=== PATIENT | female | born 1950 | race Caucasian/White ===

== ENCOUNTER → 2016-10-10 17:01 | Outpatient (CLI) | payer MEDICARE, BC | END | disposition home or self-care (01) | LOC: D.MAMMO 14:00 | DX: Z12.31 Encounter for screening mammogram for malignant neoplasm of breast (principal) ==

== ENCOUNTER → 2017-08-15 10:19 | Outpatient (CLI) | payer MEDICARE, BC | END | disposition home or self-care (01) | LOC: D.CT 10:19 | DX: R06.02 Shortness of breath (principal) ==

== ENCOUNTER → 2017-08-22 11:55 | Outpatient (CLI) | payer MEDICARE, BC | END | disposition home or self-care (01) | LOC: D.MAMMO 09:30 | DX: R92.8 Other abnormal and inconclusive findings on diagnostic imaging of breast (principal) ==

== ENCOUNTER 2018-07-17 17:21 | Inpatient (IN) | payer MEDICARE, BC ==
[~2018-07-17] VITALS: Ht 157.5 cm; Wt 113.4 kg
[2018-07-17 19:12] LABS: BASOPHILS 0.2 % (0-2); EOSINOPHILS 0.8 % (0-7); HEMATOCRIT 40.7 % (36.0-48.0); HEMOGLOBIN 13.9 g/dL (12-16); IMMATURE GRANULOCYTES 0.3 % (0-5); LYMPHOCYTES 20.7 % (15-50); MCH 29.6 pg (26.0-34.0); MCHC 34.2 g/dL (31.0-37.0); MCV 86.6 fL (80.0-100.0); MEAN PLATELET VOLUME 10.5 fL (7.4-10.4); MONOCYTES 7.4 % (2-11); NEUTROPHILS 70.6 % (40-80); RDW 13.4 % (11.5-14.5); WBC 17.3 10x3/uL (4.8-10.8)
[2018-07-17 19:14] LABS: PLATELET COUNT 268 10x3/uL (130-400)
--- NOTE | 2018-07-17 19:30 | NUR ---
SITTING UP IN CHAIR AT BEDSIDE, IN ROOM, DENIES PAIN, RADIOLOGY HERE FOR US, ORIENTIATED TO ROOM CALL LIGHT IN REACH
[2018-07-17 19:48] LABS: ALBUMIN 3.9 g/dL (3.4-5.0); ANION GAP 20.3 mmol/L (8-16); BILIRUBIN - TOTAL 0.82 mg/dL (0.2-1.3); C-REACTIVE PROTEIN 2.6 mg/dL (0.0-0.9); CALCIUM 9.3 mg/dL (8.5-10.1); CARBON DIOXIDE 20.9 mmol/L (21.0-32.0); CREATININE - SERUM 1.6 mg/dL (0.6-1.3); POTASSIUM - SERUM 4.2 mmol/L (3.5-5.1); PROTEIN - SERUM 7.8 g/dL (6.4-8.2)
[2018-07-17 23:33] VITALS: BP 129/53; BMI 45.8
[2018-07-18] VITALS: BP 126/60
--- NOTE | 2018-07-18 03:36 | NUR ---
I have reviewed this patient and I concur with the Shift Assessment completed by the Licensed Practical Nurse today this shift.
[2018-07-18 04:00] VITALS: BP 104/64
[2018-07-18 06:18] LABS: BASOPHILS 0.2 % (0-2); EOSINOPHILS 2.3 % (0-7); HEMATOCRIT 35.3 % (36.0-48.0); IMMATURE GRANULOCYTES 0.2 % (0-5); LYMPHOCYTES 25.6 % (15-50); MCH 29.4 pg (26.0-34.0); MCV 86.5 fL (80.0-100.0); MEAN PLATELET VOLUME 10.3 fL (7.4-10.4); MONOCYTES 9.4 % (2-11); NEUTROPHILS 62.3 % (40-80); PLATELET COUNT 225 10x3/uL (130-400); RBC 4.08 10x6/uL (4.00-5.40); RDW 13.6 % (11.5-14.5); WBC 13.2 10x3/uL (4.8-10.8)
[2018-07-18 06:39] LABS: ALBUMIN 3.2 g/dL (3.4-5.0); ANION GAP 15.1 mmol/L (8-16); BILIRUBIN - TOTAL 0.83 mg/dL (0.2-1.3); CALCIUM 8.9 mg/dL (8.5-10.1); CARBON DIOXIDE 23.7 mmol/L (21.0-32.0); CREATININE - SERUM 1.4 mg/dL (0.6-1.3); POTASSIUM - SERUM 3.8 mmol/L (3.5-5.1); PROTEIN - SERUM 6.6 g/dL (6.4-8.2)
--- NOTE | 2018-07-18 07:45 | NUR ---
ASSESSMENT PER FLOW SHEET. PT IS WITHOUT DISTRESS. NPO FOR CTA THIS AM. MONITOR FOR NEEDS.CALL LIGHT IN REACH.
[2018-07-18 08:45] VITALS: BP 120/68
--- NOTE | 2018-07-18 10:03 | NUR ---
IV HURTING AFTER CT WITH CONTRAST. DCD WITH CATH TIP INTACT
--- NOTE | 2018-07-18 10:29 | NUR ---
ATTEMPTED IV RESITE X2 USING ASEPTIC TECH. I WAS UNABLE TO ADVACNE IV CATHETER BOTH TIMES
[2018-07-18 10:44] LABS: APPEARANCE HAZY (CLEAR); COLOR STRAW (YELLOW); GLUCOSE NEGATIVE (NEGATIVE); NITRITE NEGATIVE (NEGATIVE); PROTEIN NEGATIVE (NEGATIVE)
[2018-07-18 10:45] LABS: BILIRUBIN NEGATIVE (NEGATIVE); KETONE NEGATIVE (NEGATIVE); UROBILINOGEN NORMAL (NORMAL)
[2018-07-18 12:48] VITALS: BP 116/67
[2018-07-18 13:38] VITALS: BMI 45.7
[2018-07-18 13:47] VITALS: Ht 157.5 cm; Wt 113.4 kg
--- NOTE | 2018-07-18 14:44 | NUR ---
SPOKE WITH PJ CLAROS. PT HAVING REACTION TO LEVAQUIN. ORDERS RECIEVED AND INITIATED
--- NOTE | 2018-07-18 15:48 | NUR ---
PT FEELING BETTER. SHE HAS LESS ITCHING. SHE IS WITHOUT DISTRESS.MONIOR
[2018-07-18 16:35] VITALS: BP 106/46
--- NOTE | 2018-07-18 17:41 | NUR ---
REMAINS WITHOUT NEEDS,WITHOUT CHANGE FROM INITIAL SHIFT ASSESSMENT.CONT PLAN OF CARE
[2018-07-18 20:00] VITALS: BP 151/70
--- NOTE | 2018-07-18 20:22 | NUR ---
AWAKE,ALERT.COMPLAITNS OF HEADACHE. TYLENOL 325 MG GIVEN PER REQUEST. IV TO RIGHT HAND WITHOUT REDNESS OR EDEMA NOTED. REFUSED LEVIMIER DUE TO BEING NPO AFTER MN FOR PROCEDURE IN AM.
[2018-07-19] VITALS: BP 112/69
[2018-07-19 04:00] VITALS: BP 151/67
[2018-07-19 05:04] LABS: BASOPHILS 0.3 % (0-2); EOSINOPHILS 5.1 % (0-7); HEMATOCRIT 34.3 % (36.0-48.0); HEMOGLOBIN 11.4 g/dL (12-16); IMMATURE GRANULOCYTES 0.4 % (0-5); MCH 29.2 pg (26.0-34.0); MCHC 33.2 g/dL (31.0-37.0); MCV 87.7 fL (80.0-100.0); MEAN PLATELET VOLUME 10.5 fL (7.4-10.4); NEUTROPHILS 53.2 % (40-80); PLATELET COUNT 206 10x3/uL (130-400); RBC 3.91 10x6/uL (4.00-5.40); RDW 13.6 % (11.5-14.5)
[2018-07-19 05:13] LABS: WBC 7.7 10x3/uL (4.8-10.8)
[2018-07-19 05:39] LABS: ALBUMIN 2.9 g/dL (3.4-5.0); ANION GAP 12.1 mmol/L (8-16); BILIRUBIN - TOTAL 0.69 mg/dL (0.2-1.3); CALCIUM 8.4 mg/dL (8.5-10.1); CARBON DIOXIDE 25.7 mmol/L (21.0-32.0); CREATININE - SERUM 1.3 mg/dL (0.6-1.3); POTASSIUM - SERUM 3.8 mmol/L (3.5-5.1); PROTEIN - SERUM 6.3 g/dL (6.4-8.2)
--- NOTE | 2018-07-19 07:45 | NUR ---
ASSESSMENT PER FLOW SHEET. PT IS WITHOUT DISTRESS. NPO FOR TESTING.CALL LIGHT IN [place]IGUELIT[place]
[2018-07-19 08:46] VITALS: BP 132/66
--- NOTE | 2018-07-19 10:51 | NUR ---
TESTING COMPLETE. TRAY TO PT
[2018-07-19 12:48] VITALS: BP 153/53
[2018-07-19 16:45] VITALS: BP 108/62
--- NOTE | 2018-07-19 19:15 | NUR ---
RECEIVED CARE FROM DAY NURSE. SITTING IN BED WATCHING TV. REPORTS NO NEEDS AT THIS TIME. CALL LIGHT AT SIDE. IV INFUSING TO PATENT RIGHT HAND PER ORDER.
[2018-07-19 19:35] VITALS: BP 124/75
--- NOTE | 2018-07-20 00:58 | NUR ---
I have reviewed this patient and I concur with the Shift Assessment completed by the Licensed Practical Nurse today this shift.
[2018-07-20 01:36] VITALS: BP 118/55
[2018-07-20 05:02] LABS: BASOPHILS 0.2 % (0-2); EOSINOPHILS 5.9 % (0-7); HEMATOCRIT 32.2 % (36.0-48.0); HEMOGLOBIN 10.8 g/dL (12-16); IMMATURE GRANULOCYTES 0.4 % (0-5); LYMPHOCYTES 27.9 % (15-50); MCH 29.2 pg (26.0-34.0); MCHC 33.5 g/dL (31.0-37.0); MEAN PLATELET VOLUME 10.5 fL (7.4-10.4); NEUTROPHILS 56.6 % (40-80); PLATELET COUNT 216 10x3/uL (130-400); RDW 13.4 % (11.5-14.5); WBC 8.4 10x3/uL (4.8-10.8)
[2018-07-20 05:11] LABS: % SATURATION 15 % (15-55); IRON 37 ug/dl (35-150); TOTAL IRON BIND CAPACITY 233 ug/dl (260-445); UNSAT IRON BIND CAPACITY 196 ug/dl (150-375)
[2018-07-20 05:29] LABS: ANION GAP 14.7 mmol/L (8-16); BILIRUBIN - TOTAL 0.55 mg/dL (0.2-1.3); CALCIUM 8.2 mg/dL (8.5-10.1); CARBON DIOXIDE 23.1 mmol/L (21.0-32.0); CREATININE - SERUM 1.1 mg/dL (0.6-1.3); POTASSIUM - SERUM 3.8 mmol/L (3.5-5.1); PROTEIN - SERUM 6.2 g/dL (6.4-8.2)
[2018-07-20 05:39] VITALS: BP 112/56
[2018-07-20 09:10] VITALS: BP 158/58
--- NOTE | 2018-07-20 10:23 | NUR ---
PT WENT FOR SCAN THIS MORNING AND IV INFILTRATED, PT WAS BROUGHT BACK TO ROOM, ATTEMPTED TO RESITE IV SEVERAL TIMES, UNSUCCESSFUL, ASKED CHARGE NURSE TO ATTEMPT AND SHE WAS UNSUCCESSFUL. CALLED ICU AND THEY STATED THEY HAD A FULL LOAD, CALLED ER AND THEY WERE FULL WELL BUT WILL SEND SOMEONE WHEN POSSIBLE, JUSTYN JORGENSEN
--- NOTE | 2018-07-20 11:24 | NUR ---
CALLED DR JORGENSEN IN REGARDS TO UNSUCCESSFUL IV IN PT, PER DR JORGENSEN ORDER PICC. PT VERY UNDRSTANDING, CONTINUE WITH PLAN OF CARE
--- NOTE | 2018-07-20 11:49 | NUR ---
ADVISED BY HS THAT PICCS ARE NOT DONE ON WEEKENDS, SPOKE TO MARKEL BECK, RESTART PT DIET
[2018-07-20 13:35] VITALS: BP 103/59
[2018-07-20 16:48] VITALS: BP 117/60
--- NOTE | 2018-07-20 17:15 | NUR ---
I have reviewed this patient and I concur with the Shift Assessment completed by the Licensed Practical Nurse today this shift.
--- NOTE | 2018-07-20 19:00 | NUR ---
REPORT RECEIVED AND CARE OF PT ASSUMED. PT SITTING UP IN BED WATCHING TV. NO IV AT THIS TIME...ORDER FOR PICC LINE TO BE PLACED. WILL MONITOR FOR NEEDS.
[2018-07-20 20:00] VITALS: BP 145/69
--- NOTE | 2018-07-20 21:30 | NUR ---
HS MEDICAITONS GIVEN. FSBS 126 AT THIS CHECK REQUIRING NO COVERAGE PER SLIDING SCALE. WILL CONTINUE TO MONITOR FOR NEEDS.
--- NOTE | 2018-07-20 21:45 | NUR ---
HS SNACK GIVEN: SANDRA CRACKERS, PEANUB BUTTER, AND MILK.
[2018-07-21] VITALS: BP 133/56
--- NOTE | 2018-07-21 | NUR ---
NPO STATUS BEGINS NOW FOR AM TESTING.
--- NOTE | 2018-07-21 04:00 | NUR ---
LEFT MIDLINE PLACED BY CHYNA JOHANSEN. RE-STARTED IV FLUIDS PER ORDER AT 50 ML / HR.
[2018-07-21 05:45] LABS: BASOPHILS 0.4 % (0-2); EOSINOPHILS 4.2 % (0-7); HEMATOCRIT 34.1 % (36.0-48.0); HEMOGLOBIN 11.4 g/dL (12-16); IMMATURE GRANULOCYTES 0.2 % (0-5); LYMPHOCYTES 29.3 % (15-50); MCH 29.3 pg (26.0-34.0); MCHC 33.4 g/dL (31.0-37.0); MCV 87.7 fL (80.0-100.0); MEAN PLATELET VOLUME 11.1 fL (7.4-10.4); MONOCYTES 10.7 % (2-11); NEUTROPHILS 55.2 % (40-80); PLATELET COUNT 226 10x3/uL (130-400); RBC 3.89 10x6/uL (4.00-5.40); RDW 13.6 % (11.5-14.5); WBC 8.6 10x3/uL (4.8-10.8)
[2018-07-21 06:07] LABS: ALBUMIN 3.2 g/dL (3.4-5.0); ANION GAP 12.7 mmol/L (8-16); BILIRUBIN - TOTAL 0.49 mg/dL (0.2-1.3); CALCIUM 8.4 mg/dL (8.5-10.1); CARBON DIOXIDE 24.8 mmol/L (21.0-32.0); CREATININE - SERUM 1.1 mg/dL (0.6-1.3); POTASSIUM - SERUM 3.5 mmol/L (3.5-5.1); PROTEIN - SERUM 6.4 g/dL (6.4-8.2)
[2018-07-21 09:25] VITALS: BP 131/66
--- NOTE | 2018-07-21 09:46 | NUR ---
PT WAS ABLE TO GET MIDLINE PLACED LAST NIGHT PT ABLE TO HAVE PIPPIDA THIS MORNING SCHEDULED. CONTINUE WITH PLAN OF CARE
[2018-07-21 12:20] VITALS: BP 128/70
--- NOTE | 2018-07-21 15:08 | NUR ---
PT REQUESTED PAIN MEDICATION, ONLY MED ON MAY IS TYLENOL. HAD KIRAN PAGED, PER KIRAN PT CAN HAVE MORPHINE 2 MG Q4 OR NORCO 5MG Q4. PT OPTED FOR NORCO NOW TO SEE IF IT HELPS WILL ADMINISTER PRN PAIN MEDICATION
--- NOTE | 2018-07-21 15:11 | NUR ---
I have reviewed this patient and I concur with the Shift Assessment completed by the Licensed Practical Nurse today this shift.
[2018-07-21 16:36] VITALS: BP 130/68
--- NOTE | 2018-07-21 19:15 | NUR ---
RECEIVED CARE FROM DAY NURSE. SITTING IN BED WATCHING TV. REPORTS NO NEEDS AT THIS TIME. CALL LIGHT AT SIDE. IV INFUSING TO PATENT LEFT UPPER ARM MIDLINE.
[2018-07-21 19:45] VITALS: BP 120/64
[2018-07-22 00:24] VITALS: BP 125/44
[2018-07-22 04:48] VITALS: BP 104/64
[2018-07-22 05:18] LABS: BASOPHILS 0.3 % (0-2); EOSINOPHILS 5.2 % (0-7); HEMATOCRIT 33.2 % (36.0-48.0); IMMATURE GRANULOCYTES 0.3 % (0-5); LYMPHOCYTES 28.7 % (15-50); MCHC 33.1 g/dL (31.0-37.0); MCV 87.6 fL (80.0-100.0); MEAN PLATELET VOLUME 10.7 fL (7.4-10.4); MONOCYTES 10.5 % (2-11); PLATELET COUNT 198 10x3/uL (130-400); RBC 3.79 10x6/uL (4.00-5.40); RDW 13.5 % (11.5-14.5); WBC 7.3 10x3/uL (4.8-10.8)
[2018-07-22 05:45] LABS: ALBUMIN 2.9 g/dL (3.4-5.0); ANION GAP 12.2 mmol/L (8-16); BILIRUBIN - TOTAL 0.41 mg/dL (0.2-1.3); CALCIUM 8.4 mg/dL (8.5-10.1); CARBON DIOXIDE 26.6 mmol/L (21.0-32.0); POTASSIUM - SERUM 3.8 mmol/L (3.5-5.1)
--- NOTE | 2018-07-22 08:00 | NUR ---
ASSESSMENT PER FLOW SHEET. PT IS WITHOUT DISTRESS.NPO FOR PROCEDURE TODAY.MONITOR FOR NEEDS
[2018-07-22 08:46] VITALS: BP 131/66
[2018-07-22 13:46] VITALS: BP 129/66
--- NOTE | 2018-07-22 13:47 | NUR ---
NUTRITION F/U DIABETIC DIET UNTIL MN TONITE. WILL MONITOR DIET ADVANCEMENT AFTER SURGERY. RD FOLLOWING
[2018-07-22 14:09] LABS: OVA + PARASITE EXAM Final report (())
--- NOTE | 2018-07-22 17:51 | NUR ---
REMAINS WITHOUT NEEDS. PT IS WITHOUT CHNAGE FROM INITIAL SHIFT ASSESSMENT.CONT PLAN OF CARE
[2018-07-22 18:12] VITALS: BP 129/67
--- NOTE | 2018-07-22 20:00 | NUR ---
ASSESSMENT PER FLOWSHEET. SR UP X2 CALL LIGHT WITHIN REACH. MASS TYPE AREA NOTED TO RT FLANK AREA. IV PATENT OF NS AT 50CC'S/HR. RESTING QUIETLY.
[2018-07-22 21:12] VITALS: BP 124/67
--- NOTE | 2018-07-22 21:30 | NUR ---
MEDS GIVEN PER FLOWSHEET. JNWX=114. HUMALOG INSULIN OF 12 UNITS GIVEN SUBC TO ABDOMEN PER S/S.
--- NOTE | 2018-07-22 23:30 | NUR ---
ADA SNACK OF SANDRA CRACKERS AND PEANUT BUTTER GIVEN ADA SNACK.
[2018-07-23] VITALS (11 sets, daily range): BP systolic 120–156; BP diastolic 60–109
--- NOTE | 2018-07-23 | NUR ---
NPO FOR SURGERY TOMORROW. PERMITS ALL SIGNED AND ON CHART.
[2018-07-23 06:26] LABS: BASOPHILS 0.3 % (0-2); EOSINOPHILS 5.3 % (0-7); HEMATOCRIT 33.3 % (36.0-48.0); HEMOGLOBIN 10.7 g/dL (12-16); IMMATURE GRANULOCYTES 0.5 % (0-5); LYMPHOCYTES 28.6 % (15-50); MCH 28.8 pg (26.0-34.0); MCHC 32.1 g/dL (31.0-37.0); MCV 89.5 fL (80.0-100.0); MONOCYTES 9.9 % (2-11); NEUTROPHILS 55.4 % (40-80); PLATELET COUNT 215 10x3/uL (130-400); RBC 3.72 10x6/uL (4.00-5.40); RDW 13.7 % (11.5-14.5); WBC 8.7 10x3/uL (4.8-10.8)
--- NOTE | 2018-07-23 06:28 | NUR ---
IV SALINE LOCKED SO PATIENT CAN TAKE HIBICLEANSE SHOWER SELF CARE DONE.
[2018-07-23 06:57] LABS: ANION GAP 12.3 mmol/L (8-16); BILIRUBIN - TOTAL 0.44 mg/dL (0.2-1.3); CALCIUM 8.2 mg/dL (8.5-10.1); CARBON DIOXIDE 27.2 mmol/L (21.0-32.0); CREATININE - SERUM 1.1 mg/dL (0.6-1.3); POTASSIUM - SERUM 4.5 mmol/L (3.5-5.1); PROTEIN - SERUM 5.6 g/dL (6.4-8.2)
--- NOTE | 2018-07-23 08:21 | NUR ---
PT AAOX4 REQUESTING TO BE HOOKED BACK UP TO IV DONE AT THIS TIME, CL IN REACH
[2018-07-23] MEDS ORDERED: LEVEMIR IN100 UNITS/ SC (13:28)
[2018-07-23] MEDS ORDERED: LEVEMIR FL100 UNIT/1 SC (13:57)
--- NOTE | 2018-07-23 23:04 | NUR ---
REC'D FROM PACU PER BED TO ROOM 2220 POST OP LAP CHOLY/CHOLANGEOGRAM/LIVER BX AND REMOVAL OF MASS TO RT BACK AREA SHANTELL DRAIN IN PLACE AND COMPRESSED. NOTHING IN BULB. IV PATENT RT MIDLINE OF NS AT 50CC'S/HR. O2 ON 2 L/M PER NC. AGNESAIDE DRSG X4 TO ABD. LAP SITES C/D/I DRSG TO BACK C/D/I.
--- NOTE | 2018-07-23 23:25 | NUR ---
PT HAVING DRY HEAVES. PHENERGAN 25MG IVP GIVEN PER PACU NURSE X 1 DOSE. O2 ON 2 L/M PER NC. FSBS WAS DONE IN PACU RESULTS =202. NO COVERAGE AT THIS TIME
--- NOTE | 2018-07-23 23:30 | NUR ---
UPON ARRIVAL TO ROOM PATIENT BECAME MORE NAUSEATED AND STARTED WRECHING. CONSULTED ANESTHESIA SELIN LAZCANO CRNA. VERBAL ORDERS RECEIVED TO ADMINISTER PHENERGAN 25MG IM X1 NOW. ORDERS RECEIVED AND IMPLEMENTED. WILL CONTINUE TO MONITOR.
[2018-07-24] VITALS (11 sets, daily range): BP systolic 108–149; BP diastolic 59–101
--- NOTE | 2018-07-24 01:00 | NUR ---
AWAKE FEELING BETTER. VS REMAIN STABLE. NO FURTHER NAUSEA NOTED.
--- NOTE | 2018-07-24 03:19 | NUR ---
C/O INCISIONAL PAIN NORCO TAB ONE PO GIVEN FOR PAIN CONTROL. UP WITH HELP TO BR VOIDS WELL.
--- NOTE | 2018-07-24 03:35 | NUR ---
RESTING QUIETLY DENIES NEEDS.
[2018-07-24 06:34] LABS: BASOPHILS 0.1 % (0-2); EOSINOPHILS 0.2 % (0-7); HEMATOCRIT 36.1 % (36.0-48.0); HEMOGLOBIN 11.8 g/dL (12-16); IMMATURE GRANULOCYTES 0.5 % (0-5); LYMPHOCYTES 6.4 % (15-50); MCH 29.1 pg (26.0-34.0); MCHC 32.7 g/dL (31.0-37.0); MCV 89.1 fL (80.0-100.0); MONOCYTES 2.7 % (2-11); NEUTROPHILS 90.1 % (40-80); PLATELET COUNT 223 10x3/uL (130-400); RBC 4.05 10x6/uL (4.00-5.40); RDW 13.6 % (11.5-14.5)
[2018-07-24 06:35] LABS: WBC 12.8 10x3/uL (4.8-10.8)
[2018-07-24 07:00] LABS: ANION GAP 16.2 mmol/L (8-16); CALCIUM 8.3 mg/dL (8.5-10.1); CARBON DIOXIDE 24.1 mmol/L (21.0-32.0); POTASSIUM - SERUM 4.3 mmol/L (3.5-5.1)
--- NOTE | 2018-07-24 08:30 | NUR ---
PT RESTING QUIETLY IN BED. NO ACUTE DISTRESS NOTED. REPORTS PAIN 10/10 AT TIS TIME, PAIN MED TO BE ADMINISTERED PER MD ORDERS. MIDLINE TO LEFT UPPER ARM WITH NS @ 50ML/HR INFUSING VIA PUMP. SITE WITHOUT REDNESS OR EDEMA. LAP SITES X 4 TO ABDOMEN DRESSING C/D/I. SHANTELL DRAIN TO RIGHT FLANK, INCISION TO RIGHT FLANK , DRESSING C/D/I. DENIES FURTHER NEEDS AT THIS TIME. CL WITHIN REACH. ENCOURAGED TO CALL WITH NEEDS. CONTINUE POC
--- NOTE | 2018-07-24 11:30 | NUR ---
PT ASSISTED TO BR AND BACK TO BED. ORDERS TO REMOVE SHANTELL DRAIN FROM RIGHT FLANK D/C SHANTELL DRAIN FROM RIGHT FLANK, CATH INTACT. PT JF WELL. NO DRAINAGE NOTED AT THIS TIME. COVERED AREA WITH 4X4.
--- NOTE | 2018-07-24 12:16 | MORECARE ---
CASE MANAGEMENT DISCHARGE SUMMARY PATIENT: AKASH SHERMAN UNIT: [id number] ADM DATE: 07/17/18 AGE: 68 : [birth year] SEX: F ROOM/BED: D.2220 AUTHOR: STEVIE,DOC PHYSICIAN: REFERRING PHYSICIAN: RANJEET JON MD DATE OF SERVICE: 07/24/18 Discharge Plan Patient Name: AKASH SHERMAN Facility: [facility]:[place] : 1950 Planned Disposition: Home or Self Care Anticipated Discharge Date: Discharge Date: Expected LOS: Initial Reviewer: [email or web address] Initial Review Date: 07/17/2018 Generated: 07/24/18 1:15 pm Comments DCP- Discharge Planning Updated by [email or web address]: Teri Aceves on 07/24/18 11:[address] Patient Name: AKASH SHERMAN Admission Status: Elective Accout number: [id number] Admission Date: 07-17-2018 : 1950 Admission Diagnosis:UNSPECIFIED ABDOMINAL PAIN Attending: DANAY, Current LOS: 7 Anticipated DC Date: Planned Disposition: Home or Self Care Primary Insurance: MEDICARE A & B Discharge Planning Comments: CM met with patient to complete initial dc planning assessment. CM educated patient on the CM role and verbal consent given by patient to complete assessment. Patient lives at home with her where she states she is independent with her care. At discharge patient plans to return home and feels this is a safe discharge. CM discussed availability of home health, rehab services, and medical equipment. IMM served and explained. 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 Patient denied known discharge needs at this time. CM will continue to follow and will assist as needed with dc plans/needs. Front Office Manager: Teri Aceves DCPIA - Discharge Planning Initial Assessment Updated by [email or web address]: Teri Aceves on 07/24/18 12:10 pm * Is the patient Alert and Oriented? Yes * How many steps to enter\exit or inside your home? * PCP Danay * Pharmacy [address] * Preadmission Environment Home with Family * ADLs Independent * Equipment None * List name and contact numbers for known caregivers / representatives who currently or will assist patient after discharge: RAISA () [phone] * Verbal permission to speak to the caregivers and representatives has been obtained from the patient. N/A * Community resources currently utilized None * Additional services required to return to the preadmission environment? No * Can the patient safely return to the preadmission environment? Yes * Has this patient been hospitalized within the prior 30 days at any hospital? No Coverage Notice Reviewer: [id number] Shanna Aceves Notice Issued Date-Time: 07/24/2018 12:00 Notice Type: IM Discharge Notice Notice Delivered To: Patient Relationship to Patient: Multimedia Technician Name: Delivery Method: HAND - Hand Delivered Pascale Days: Prior Verbal Notification: Recipient Understood Notice: Yes Recipient Signature: Yes Med Rec Note Co-signed by Attending: Coverage Notice Comment: Patient Name: AKASH SHERMAN Page [phone] at 1216 All edits/amendments must be made on the electronic document DICTATION DATE: 07/24/18 1215 TREE SAPPER: SONJA 07/24/18 1215 RPT#: [id number] DC DATE: STATUS: ADM IN [facility] [address] [place] [address] END OF REPORT
--- NOTE | 2018-07-24 18:45 | OP ---
PATIENT NAME: AKASH SHERMAN MEDICAL RECORD: [id number] :[birth year] LOCATION:D.MS [id number] ADMISSION DATE:07/17/18 SURGEON: AARON PARKER MD DATE OF OPERATION: 07/23/2018 PREOPERATIVE DIAGNOSES: 1. Biliary dyskinesia 2. Fatty liver disease. 3. Large right flank/back mass. Please see dimensions below. POSTOPERATIVE DIAGNOSES: 1. Biliary dyskinesia 2. Fatty liver disease. 3. Large right flank/back mass. Please see dimensions below. PROCEDURES: 1. Laparoscopic cholecystectomy. 2. Intraoperative cholangiography without immediate surgeon interpretation. 3. A 14-gauge core-needle liver biopsies. 4. Excision of right flank/back mass. The mass measured 10 x 8 cm and was 4 cm in depth. It went down to the abdominal wall and the rib cage, but did not enter the hemithorax. DRAINS: Times 1 (10-Maltese fully fluted closed drainage system). The risks, possible complications, and alternatives to the procedure were explained to the patient. She elects to proceed. The discussion specifically included, but was not limited to, bleeding requiring emergency reoperation, infection, bile duct injury, chronic pain, the possible need for a revisionary or more aggressive procedure if the back/flank mass proves to represent a malignancy. OPERATIVE COURSE: The patient was conveyed to the operating room electively on 07/23/2018. General anesthesia was induced by the anesthesia staff. The abdomen was sterilely prepped and draped. A small skin mckenzie was accomplished in the left upper quadrant. A Veress needle was inserted through the skin mckenzie into the peritoneal cavity. CO2 insufflation was begun. Once a sufficient pneumoperitoneum had been achieved, a 5-mm trocar was inserted in the right upper quadrant. Under direct internal vision utilizing the television camera, a 10-mm trocar was inserted through an incision at the umbilicus where there was a small umbilical hernia. Another 5-mm trocar was inserted to the left of midline in the left upper quadrant. Another 5-mm trocar was inserted far laterally in the right upper quadrant. The indication for the liver biopsy was hepatomegaly as well as a known fatty liver disease. Under laparoscopic guidance, I percutaneously accessed the right upper quadrant utilizing a 14-gauge core biopsy device. Cores were obtained over the convexity of the liver. The biopsy sites were made hemostatic with the electrocautery. I then advanced a cholangiogram trocar. I punctured the fundus of the gallbladder. I aspirated bile. I then injected dye. Real-time cholangiographic images were obtained and these are sent to the radiologist for interpretation. I then aspirated bile and removed the cholangiogram trocar. The gallbladder was grasped and retracted cephalad. The infundibulum was grasped and retracted laterally. Blunt dissection was begun on the triangle of Calot. One cystic artery and one cystic duct were identified. These were OPERATIVE REPORT [id number] AKASH SHERMAN clipped multiply and divided between clips. The gallbladder was then excised from its bed in the liver. It was placed within a bag retrieval device and was withdrawn through the umbilical fascia defect. The 12-mm trocar was replaced and the abdomen reinsufflated. I irrigated and aspirated the right upper quadrant. There was no bleeding even at low pressure of 8. All the trocars were removed and the abdomen desufflated. The fascia at the umbilicus was closed with a horizontal mattress 0 Vicryl suture. The skin at the umbilicus was closed with interrupted 4-0 Vicryl Rapide sutures. The other trocar sites were closed with interrupted intracuticular 3-0 Vicryls. Benzoin and Steri-Strips were applied. The patient was then repositioned. She was positioned in the full lateral decubitus position with the left side down. The left back and left flank were sterilely prepped and draped. A transverse incision was accomplished overlying the mass. I dissected down to back muscles, which were rather then divided. I then performed some blunt dissection around this mass and was able to deliver it in its entirety. Some additional surrounding connective tissue was excised in a piecemeal fashion. A topical hemostatic agent was added to the wound. The muscles were approximated with multiple interrupted horizontal mattress #1 Vicryls. I then placed a 10-Maltese round drain and brought out through a stab incision through the superior flap. The subdermis was approximated with interrupted 3-0 Vicryl. The skin was approximated with a running intracuticular 3-0 Vicryl. The drain was sutured to skin with a 4-0 nylon suture. The patient was then extubated and conveyed to the post-anesthesia care unit, where she was in stable condition. It should be noted that the patient was a difficult intubation. TRANSINT:[id number] Voice Confirmation ID: [id number] DOCUMENT ID: [id number] AARON PARKER MD at 1845 CC: RANJEET JON MD [id number] DICTATION DATE: 07/24/18 1030 DIRECTOR EMBALMER: 07/24/18 1150 ADM IN [place] [id number] [place] [id number]
--- NOTE | 2018-07-24 20:00 | NUR ---
ASSESSMENT PER FLOWSHEET. IV PATENT LEFT MIDLINE OF NS AT 50CC'S/HR SITE CLEAR. SCD'S ON SR UP X2 CALL LIGHT WITHIN REACH. DRESSING TO RT BACK AREA C/D/I. LAP SITES X4 TO ABDOMEN C/D/I. C/O SORE THROAT AND SWELLING OF NECK AREA BENEDRYL 25MG PO GIVEN FOR SWELLING.
--- NOTE | 2018-07-24 21:00 | NUR ---
MEDS GIVEN PER MAY. YGYS=[id number] 8 UNITS OF HUMALOG INSULIN GIVN SUBC LEFT ABD. PER S/S. TAKING CHICKEN BROTH PO TOLERATED WELL STATES BROTH SOOTHS THROAT.
--- NOTE | 2018-07-25 | NUR ---
EYES CLOSED RESPIRATIONS WITH EASE AND UNLABORED. DENIES NEEDS. SR UP X2 CALL LIGHT WITHIN REACH.
[2018-07-25 00:30] VITALS: BP 109/56
[2018-07-25 04:30] VITALS: BP 109/58
[2018-07-25 06:10] LABS: BASOPHILS 0.1 % (0-2); EOSINOPHILS 0.2 % (0-7); HEMATOCRIT 30.3 % (36.0-48.0); IMMATURE GRANULOCYTES 0.4 % (0-5); LYMPHOCYTES 18.1 % (15-50); MCV 87.8 fL (80.0-100.0); MEAN PLATELET VOLUME 10.5 fL (7.4-10.4); MONOCYTES 9.3 % (2-11); NEUTROPHILS 71.9 % (40-80); PLATELET COUNT 229 10x3/uL (130-400); RBC 3.45 10x6/uL (4.00-5.40); RDW 13.7 % (11.5-14.5); WBC 13.2 10x3/uL (4.8-10.8)
[2018-07-25 06:29] LABS: ANION GAP 13.5 mmol/L (8-16); CALCIUM 8.3 mg/dL (8.5-10.1); CARBON DIOXIDE 24.3 mmol/L (21.0-32.0); CREATININE - SERUM 1.1 mg/dL (0.6-1.3); POTASSIUM - SERUM 3.8 mmol/L (3.5-5.1)
[2018-07-25 09:14] VITALS: BP 133/70
--- NOTE | 2018-07-25 10:43 | NUR ---
NUTRITION F/U CHART REVIEWED. PT VISIT. REPORTS NO PROBLEM WITH MEAL THIS AM. DOES STATE SHE THINKS SHE HAD AN "ALLERGIC REACTION" TO FOOD YESTERDAY. WILL CONTINUE TO MONITOR PT PROGRESS. RD FOLLOWING
--- NOTE | 2018-07-25 11:26 | NUR ---
MORNING ASSESSMENT COMPLETE. SEE ASSESSMENT FLOWSHEET FOR FURTHER DETAILS. PT LYIN IN BED AAO X4 TO PERSON, PLACE, TIME AND SITUATION. STATES HER THROAT IS SORE; REQUESTED AND GIVEN HOT TEA AND COFFEE. DENIES FURTHER NEEDS AT THIS TIME. CL IN REACH. SIDE RAILS UP X3 FOR PT LEONARD. BED IN LOWEST POSITION.
[2018-07-25 12:17] VITALS: BP 120/57
[2018-07-25 14:50] LABS: APPEARANCE CLEAR (CLEAR); BILIRUBIN NEGATIVE (NEGATIVE); COLOR STRAW (YELLOW); GLUCOSE NEGATIVE (NEGATIVE); KETONE NEGATIVE (NEGATIVE); NITRITE NEGATIVE (NEGATIVE); PROTEIN NEGATIVE (NEGATIVE); UROBILINOGEN NORMAL (NORMAL)
[2018-07-25 16:33] VITALS: BP 120/64
[2018-07-25 20:03] VITALS: BP 127/57
[2018-07-26 00:23] VITALS: BP 112/52
--- NOTE | 2018-07-26 01:17 | NUR ---
RESTING IN BED NO S/S OF DISTRESS, CALL LIGHT IN REACH
[2018-07-26 05:19] VITALS: BP 118/64
[2018-07-26 06:15] LABS: BASOPHILS 0.2 % (0-2); EOSINOPHILS 2.3 % (0-7); HEMATOCRIT 31.6 % (36.0-48.0); HEMOGLOBIN 10.4 g/dL (12-16); IMMATURE GRANULOCYTES 0.2 % (0-5); LYMPHOCYTES 31.3 % (15-50); MCH 29.2 pg (26.0-34.0); MCHC 32.9 g/dL (31.0-37.0); MCV 88.8 fL (80.0-100.0); MEAN PLATELET VOLUME 10.4 fL (7.4-10.4); MONOCYTES 10.2 % (2-11); NEUTROPHILS 55.8 % (40-80); PLATELET COUNT 227 10x3/uL (130-400); RBC 3.56 10x6/uL (4.00-5.40); RDW 13.6 % (11.5-14.5)
[2018-07-26 06:28] LABS: WBC 9.4 10x3/uL (4.8-10.8)
[2018-07-26 06:44] LABS: ANION GAP 8.6 mmol/L (8-16); CALCIUM 8.3 mg/dL (8.5-10.1); CARBON DIOXIDE 28.8 mmol/L (21.0-32.0); CREATININE - SERUM 1.2 mg/dL (0.6-1.3); POTASSIUM - SERUM 3.4 mmol/L (3.5-5.1)
[2018-07-26 08:04] VITALS: BP 135/62
--- NOTE | 2018-07-26 09:00 | NUR ---
ALERT AND ORIENTED X3. SUTURE SITES TO ABDOMEN AND RT. FLANK INTACT W/O S/S OF INFECTION. BS HYPOACTIVE X4 BUT STATES IS HAVING FLATULANTS.MIDLINE INTACT TO LUE. HYDOCODONE GIVEN FOR ABDOMINAL PAIN AND EFFECTIVE. LUNGS CTA. ENCOURAGED TO USE CALL LIGHT FOR ASSIST AND VERBALIZED UNDERSTANDING.
[2018-07-26 13:09] VITALS: BP 133/68
[2018-07-26] MEDS ORDERED: LIPITOR20 MG PO (14:16)
[2018-07-26] MEDS ORDERED: LISINOPRIL5 MG PO (14:16)
[2018-07-26] MEDS ORDERED: MIRALAX17 GM PO (14:16)
[2018-07-26] MEDS ORDERED: ELAVIL25 MG PO (14:16)
[2018-07-26] MEDS ORDERED: HYDROCODON-ACE1 EAC7 PO (14:16)
[2018-07-26] MEDS ORDERED: CELEXA20 MG PO (14:16)
[2018-07-26] MEDS ORDERED: SINGULAIR10 MG PO (14:16)
[2018-07-26] MEDS ORDERED: LASIX40 MG PO (14:16)
[2018-07-26] MEDS ORDERED: K-TAB10 MEQ PO (14:16)
--- NOTE | 2018-07-26 15:00 | MORECARE ---
CASE MANAGEMENT DISCHARGE SUMMARY PATIENT: AKASH SHERMAN UNIT: [id number] ADM DATE: 07/17/18 AGE: 68 : [birth year] SEX: F ROOM/BED: D.2220 AUTHOR: STEVIE,DOC PHYSICIAN: REFERRING PHYSICIAN: RANJEET JON MD DATE OF SERVICE: 07/26/18 Discharge Plan Patient Name: AKASH SHERMAN Facility: [facility]:[place] : 1950 Planned Disposition: Home or Self Care Anticipated Discharge Date: Discharge Date: Expected LOS: Initial Reviewer: [email or web address] Initial Review Date: 07/17/2018 Generated: 07/26/18 4:00 pm Comments DCP- Discharge Planning Updated by [id number]: Teri Aceves on 07/26/18 1:[address] Patient Name: AKASH SHERMAN Encounter No: [id number] : 1950 Primary Insurance: MEDICARE A & B Anticipated DC Date: Planned Disposition: Home or Self Care External Planned Provider: : DCP follow-up note: Patient and family in agreement with discharge plan. House calls will follow patient . No changes to plan. Case management will follow and assist as needed. Teri Aceves DCP- Discharge Planning Updated by [email or web address]: Teri Aceves on 07/24/18 11:[address] Patient Name: AKASH SHERMAN Admission Status: Elective Accout number: [id number] Admission Date: 07-17-2018 : 1950 Admission Diagnosis:UNSPECIFIED ABDOMINAL PAIN Attending: DANAY, Current LOS: 7 Anticipated DC Date: Planned Disposition: Home or Self Care Primary Insurance: MEDICARE A & B Discharge Planning Comments: CM met with patient to complete initial dc planning assessment. CM educated patient on the CM role and verbal consent given by patient to complete assessment. Patient lives at home with her where she states she is independent with her care. At discharge patient plans to return home and feels this is a safe discharge. CM discussed availability of home health, rehab services, and medical equipment. IMM served and explained. 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 Patient denied known discharge needs at this time. CM will continue to follow and will assist as needed with dc plans/needs. Breast Puller: Teri Aceves DCPIA - Discharge Planning Initial Assessment Updated by [email or web address]: Teri Aceves on 07/24/18 12:10 pm * Is the patient Alert and Oriented? Yes * How many steps to enter\exit or inside your home? * PCP Danay * Pharmacy [address] * Preadmission Environment Home with Family * ADLs Independent * Equipment None * List name and contact numbers for known caregivers / representatives who currently or will assist patient after discharge: RAISA () [phone] * Verbal permission to speak to the caregivers and representatives has been obtained from the patient. N/A * Community resources currently utilized None * Additional services required to return to the preadmission environment? No * Can the patient safely return to the preadmission environment? Yes * Has this patient been hospitalized within the prior 30 days at any hospital? No Coverage Notice Reviewer: [id number] - Teri Aceves Notice Issued Date-Time: 07/24/2018 12:00 Notice Type: IM Discharge Notice Notice Delivered To: Patient Relationship to Patient: Machine Operator Packaging Name: Delivery Method: HAND - Hand Delivered Pascale Days: Prior Verbal Notification: Recipient Understood Notice: Yes Recipient Signature: Yes Med Rec Note Co-signed by Attending: Coverage Notice Comment: Last DP export: 07/24/18 11:16 am Patient Name: AKASH SHERMAN Page [id number] at 1500 All edits/amendments must be made on the electronic document DICTATION DATE: 07/26/181458 RATE MARKER: SONJA 07/26/181458 RPT#: [id number] DC DATE: STATUS: ADM IN [facility] [address] [place] [address] END OF REPORT
--- NOTE | 2018-07-26 16:42 | EC ---
PATIENT:AKASH SHERMAN DATE OF SERVICE: 07/17/18 SEX: F MEDICAL RECORD: [id number] DATE OF : [birth year] LOCATION:D.MS [address]222 AGE OF PATIENT: 68 ADMISSION DATE: 07/17/18 REFERRING PHYSICIAN: INTERPRETING PHYSICIAN: ERICA ARMENTA MD ECHOCARDIOGRAM REPORT ECHO CHARGES 4 ECHO COMPLETE Date: 07/26/18 CLINICAL DIAGNOSIS: SARCOMA ECHOCARDIOGRAPHIC MEASUREMENTS (adult normal given) AC root (d.<3.7cm) 3.4 cm LV Septum d (<1.2 cm> 1.3 cm Valve Excursion 1.7 cm LV Septum (systole) 1.9 cm Left Atria (s.<4.0cm> 3.8 cm LVPW d(<1.2cm) 1.3 cm RV (d.<2.3cm) 2.6 cm LVPW (sytole) 1.8 cm LV diastole(<5.6CM) 4.7 cm MV E-F(>70mm/sec) cm LV systole 2.7 cm LVOT Diameter 1.9 cm MV exc.(>10mm) cm Est.ejection fraction (50-75%) % DOPPLER: LVIT cm/sec A 108 cm/sec E 82.0 cm/sec LA cm/sec RVSP 37.1 mmHg LVOT 89.0 cm/sec AOP1/2T m/s Asc. Ao 145 cm/sec RVOT 86.0 cm/sec RA cm/sec PA 115 cm/sec AV Gradient Peak 8.4 mmHg AV Mean 3.7 mmHg AV Area 1.6 cm MV Gradient Peak 5.9 mmHg MV Mean 2.1 mmHg MV Area cm COMMENTS: Surveyor Helper Rod: Allen WARNEROE Administrator Social Welfare: 1 Dr. Armenta TAPE# PACS Pericardial Effusion Y DATE OF SERVICE: 07/26/2018 PROCEDURE: Echocardiogram. FINDINGS: 1. Left ventricular chamber size is within normal limits. Left ventricular systolic function is normal. Overall ejection fraction estimated at 55%. 2. Left atrium, right atrium, and right ventricle chamber sizes are within normal limits. 3. Valvular structures have normal structure and motion. ECHOCARDIOGRAM REPORT [id number] AKASH SHERMAN 4. Doppler interrogation reveals trace mitral regurgitation, mild tricuspid regurgitation, no other valvular insufficiency or stenosis. Pulmonary systolic pressure is estimated 37 mmHg. 5. Small pericardial effusion is present. This is not hemodynamically significant. No evidence of left ventricular thrombus. TRANSINT:[id number] Voice Confirmation ID: [id number] DOCUMENT ID: [id number] ERICA ARMENTA MD at 1642 CC: [id number] DICTATION DATE: 07/26/18 1336 COGNOS DEVELOPER: 07/26/18 1423 ADM IN [place] [id number] [place] [id number]
[2018-07-26 16:44] VITALS: BP 134/80
--- NOTE | 2018-07-26 16:45 | NUR ---
IV DISCONTINUED WITH VERBALIZEING UNDERSTANDING OF DISCHARGE INSTRUCTIONS AND LEFT UNDER CARE OF POV. STABLE AT TIME OF DEPARTURE.
--- NOTE | 2018-07-29 11:02 | MORECARE ---
CASE MANAGEMENT DISCHARGE SUMMARY PATIENT: AKASH SHERMAN UNIT: [id number] ADM DATE: 07/17/18 AGE: 68 : [birth year] SEX: F ROOM/BED: D.2220 AUTHOR: STEVIE,DOC PHYSICIAN: REFERRING PHYSICIAN: RANJEET JON MD DATE OF SERVICE: 07/29/18 Discharge Plan Patient Name: AKASH SHERMAN Facility: [facility]:[place] : 1950 Planned Disposition: Home or Self Care Anticipated Discharge Date: Discharge Date: 07/26/2018 Expected LOS: 0 Initial Reviewer: [email or web address] Initial Review Date: 07/17/2018 Generated: 07/29/18 12:01 pm Comments DCP- Discharge Planning Updated by [email or web address]: Teri Aceves on 07/26/18 1:[address] Patient Name: AKASH SHERMAN Encounter No: [id number] : 1950 Primary Insurance: MEDICARE A & B Anticipated DC Date: Planned Disposition: Home or Self Care External Planned Provider: : DCP follow-up note: Patient and family in agreement with discharge plan. House calls will follow patient . No changes to plan. Case management will follow and assist as needed. Teri Aceves DCP- Discharge Planning Updated by [email or web address]: Teri Aceves on 07/24/18 11:[address] Patient Name: AKASH SHERMAN Admission Status: Elective Accout number: [id number] Admission Date: 07-17-2018 : 1950 Admission Diagnosis:UNSPECIFIED ABDOMINAL PAIN Attending: DANAY, Current LOS: 7 Anticipated DC Date: Planned Disposition: Home or Self Care Primary Insurance: MEDICARE A & B Discharge Planning Comments: CM met with patient to complete initial dc planning assessment. CM educated patient on the CM role and verbal consent given by patient to complete assessment. Patient lives at home with her where she states she is independent with her care. At discharge patient plans to return home and feels this is a safe discharge. CM discussed availability of home health, rehab services, and medical equipment. IMM served and explained. 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 Patient denied known discharge needs at this time. CM will continue to follow and will assist as needed with dc plans/needs. Administrative Services Assistant: Teri Aceves DCPIA - Discharge Planning Initial Assessment Updated by [email or web address]: Teri Aceves on 07/24/18 12:10 pm * Is the patient Alert and Oriented? Yes * How many steps to enter\exit or inside your home? * PCP Danay * Pharmacy [address] * Preadmission Environment Home with Family * ADLs Independent * Equipment None * List name and contact numbers for known caregivers / representatives who currently or will assist patient after discharge: RAISA () [phone] * Verbal permission to speak to the caregivers and representatives has been obtained from the patient. N/A * Community resources currently utilized None * Additional services required to return to the preadmission environment? No * Can the patient safely return to the preadmission environment? Yes * Has this patient been hospitalized within the prior 30 days at any hospital? No Coverage Notice Reviewer: [email or web address] - Teri Aceves Notice Issued Date-Time: 07/24/2018 12:00 Notice Type: IM Discharge Notice Notice Delivered To: Patient Relationship to Patient: Lead Technical Writer Name: Delivery Method: HAND - Hand Delivered Pascale Days: Prior Verbal Notification: Recipient Understood Notice: Yes Recipient Signature: Yes Med Rec Note Co-signed by Attending: Coverage Notice Comment: Last DP export: 07/26/18 2:00 p Patient Name: AKASH SHERMAN Page [id number] at 1102 All edits/amendments must be made on the electronic document DICTATION DATE: 07/29/18 110 PATIENT SERVICES MANAGER: SONJA 07/29/18 110 RPT#: [id number] DC DATE:07/26/18 STATUS: DIS IN [facility] [address] [place] [address] END OF REPORT
== END 2018-07-26 16:45 | disposition home or self-care (01) | DRG 464 ==
LOC: D.MS 17:21
PROVIDERS: Family Medicine; Internal Medicine Gastroenterology; Internal Medicine Nephrology; Surgery; ADMIT Family Medicine; ATTEND Family Medicine
PROC: 0FT44ZZ Resection of Gallbladder, Percutaneous Endoscopic Approach (ICD-10-PCS; principal; 2018-07-23 11:45)
PROC: 0JB70ZZ Excision of Back Subcutaneous Tissue and Fascia, Open Approach (ICD-10-PCS; 2018-07-23 11:45)
PROC: 0FB04ZX Excision of Liver, Percutaneous Endoscopic Approach, Diagnostic (ICD-10-PCS; 2018-07-23 11:45)
DX: C49.6 Malignant neoplasm of connective and soft tissue of trunk, unspecified (principal); N17.9 Acute kidney failure, unspecified; N39.0 Urinary tract infection, site not specified; Z68.42 Body mass index [BMI] 45.0-49.9, adult; K82.8 Other specified diseases of gallbladder; R10.0 Acute abdomen; R11.2 Nausea with vomiting, unspecified; E86.0 Dehydration; E11.65 Type 2 diabetes mellitus with hyperglycemia; E66.01 Morbid (severe) obesity due to excess calories